=== PATIENT | female | born 1940 | race Caucasian/White ===

== ENCOUNTER 2020-06-12 14:58 | Outpatient (REF) | payer MEDICARE, SELFPAY ==
[2020-06-12 21:23] LABS: TSH (W/Ref FT4) 2.33 uIU/mL (0.36-3.74)
== END 2020-06-12 15:18 ==
LOC: NCHCN 14:58
PROVIDERS: PCP Registered Nurse; Visit Provider Registered Nurse
DX: R47.02 Dysphasia (principal)
CPT/HCPCS: 84443

== ENCOUNTER 2020-11-12 11:37 | Outpatient (REF) | payer MEDICARE, SELFPAY ==
[2020-11-12 15:11] LABS: HCT 40.1 % (36.0-46.0); HGB 13.2 g/dL (11.2-15.7); MCH 30.5 pg (27.0-33.0); MCHC 32.9 % (32.0-36.0); MCV 92.6 fL (80-95); MPV 9.2 fL (8.0-11.0); Platelet Count 355 10^3/uL (130-400); RBC 4.33 10^6/uL (3.93-5.22); RDW 12.8 % (11.7-14.6); RDW-SD 43.7 fL; WBC 3.59 10^3/uL (4.4-10.8)
[2020-11-12 15:46] LABS: ALT 23 U/L (14-59); AST 24 U/L (15-37); Albumin 3.8 g/dL (3.4-5.0); Alkaline Phosphatase 58 U/L (46-116); Anion Gap 5.9 mmol/L (3-11); BUN 16 mg/dL (7-18); Bilirubin, Total 0.4 mg/dL (0.2-1.0); CO2 28.1 mmol/L (21.0-32.0); CREATININE 0.7 mg/dL (0.55-1.02); Calcium 8.8 mg/dL (8.5-10.1); Calculated LDL 133 mg/dL (<100); Chloride 103 mmol/L (98-107); Cholesterol 225 mg/dL (<200); Glucose 91 mg/dL (74-106); HDL Cholesterol 74 mg/dL (40-60); Potassium 4.5 mmol/L (3.5-5.1); Sodium 137 mmol/L (136-145); TSH 2.27 uIU/mL (0.36-3.74); Total Protein 6.8 g/dL (6.4-8.2); Triglyceride 91 mg/dL (<150)
[2020-11-12 16:00] LABS: C-Reactive Protein 0.08 mg/dL (0.0-0.3)
== END 2020-11-12 11:57 ==
LOC: LBN 11:37
PROVIDERS: PCP Registered Nurse; Referring Provider Family Medicine; Visit Provider Specialist
DX: R59.1 Generalized enlarged lymph nodes (principal); Z85.3 Personal history of malignant neoplasm of breast; R47.02 Dysphasia; E78.89 Other lipoprotein metabolism disorders
CPT/HCPCS: 80053; 80061; 85027; 84443; 86140

== ENCOUNTER 2020-11-27 19:55 | Outpatient (REF) | payer MEDICARE, SELFPAY ==
[2020-11-30 08:28] LABS: CA 27 29 19.3 U/mL (<38.0)
== END 2020-11-27 19:56 | disposition home or self-care (01) ==
LOC: NCHCN 19:55
PROVIDERS: PCP Registered Nurse; Visit Provider Family Medicine
DX: Z85.3 Personal history of malignant neoplasm of breast (principal); Z80.3 Family history of malignant neoplasm of breast
CPT/HCPCS: 86300

== ENCOUNTER 2022-04-27 11:52 | Outpatient (REF) | payer MEDICARE, SELFPAY ==
[2022-04-27 15:17] LABS: ALT 26 U/L (14-59); AST 40 U/L (15-37); Albumin 3.7 g/dL (3.4-5.0); Alkaline Phosphatase 44 U/L (46-116); Anion Gap 6.1 mmol/L (3-11); BUN 16 mg/dL (7-18); Bilirubin, Total 0.5 mg/dL (0.2-1.0); CO2 30.9 mmol/L (21.0-32.0); CREATININE 0.6 mg/dL (0.55-1.02); Calcium 8.7 mg/dL (8.5-10.1); Calculated LDL 114 mg/dL (<100); Chloride 104 mmol/L (98-107); Cholesterol 207 mg/dL (<200); Glucose 96 mg/dL (74-106); HDL Cholesterol 77 mg/dL (40-60); Potassium 4.3 mmol/L (3.5-5.1); Sodium 141 mmol/L (136-145); TSH (W/Ref FT4) 2.85 uIU/mL (0.36-3.74); Total Protein 6.8 g/dL (6.4-8.2); Triglyceride 81 mg/dL (<150); Vitamin B12 731 pg/mL (193-986)
[2022-04-27 23:20] LABS: Parathyroid Hormone,Intact 87 pg/mL (19-88)
[2022-04-28 05:20] LABS: Vitamin D 25 Total 54.1 ng/mL (30-100)
== END 2022-04-27 11:53 | disposition home or self-care (01) ==
LOC: LBN 11:52
PROVIDERS: PCP Registered Nurse; Visit Provider Internal Medicine
DX: R53.83 Other fatigue (principal); E78.5 Hyperlipidemia, unspecified; M85.88 Other specified disorders of bone density and structure, other site; E53.8 Deficiency of other specified B group vitamins; E55.9 Vitamin D deficiency, unspecified; R53.1 Weakness
CPT/HCPCS: 80053; 80061; 82306; 82607; 83970; 84443